=== PATIENT | female | born 1965 | race Caucasian/White ===

== ENCOUNTER → 2016-08-04 | Outpatient (CLI) | payer BC ==
[~2016-08-04] VITALS: Ht 160 cm; Wt 78.5 kg
[~2016-08-04] MED LIST: ADVIL,NUPRIN,M200 MG PO; BUPROPION XL150 MG PO; CELEXA40 MG PO; CITALOPRAM HBR40 MG PO; DAILY VITE1 EAC1 PO; EXCEDRIN MIGRA1 EAC3 PO; HAIR SKIN NAIL1 EACH PO; IBUPROFEN800 MG PO; IRON325 M1 PO; IRON325 MG PO; OMEGA 3 500 SO1 EACH PO; OXYCODONE-APAP1 EACH PO; PROMETHAZINE HC25 M1 PO; PROPRANOLOL HCL80 MG PO; TOPIRAMATE25 MG PO; WELLBUTRIN XL150 MG PO
== END | disposition home or self-care (01) ==
LOC: AMB 10:25
PROC: 0DBE8ZZ Excision of Large Intestine, Via Natural or Artificial Opening Endoscopic (ICD-10-PCS; principal; 2016-08-04)
DX: Z12.11 Encounter for screening for malignant neoplasm of colon (principal); K64.9 Unspecified hemorrhoids; D12.0 Benign neoplasm of cecum; D12.3 Benign neoplasm of transverse colon; D12.5 Benign neoplasm of sigmoid colon; J45.909 Unspecified asthma, uncomplicated; R73.01 Impaired fasting glucose; M25.50 Pain in unspecified joint
CPT/HCPCS: 88305; J2250; J3010